=== PATIENT | female | born 1970 | race Hispanic/Latino ===

== ENCOUNTER 2025-06-07 14:05 | Emergency (ER) | payer SELFPAY ==
[~2025-06-07] VITALS: Ht 160 cm; Wt 56.7 kg
[2025-06-07 14:44] VITALS: TEMP 98.3
[2025-06-07] MEDS: CYCLOBENZAPRINE HCL 10 MG TAB PO ONE (15:43)
[2025-06-07] MEDS: KETOROLAC TROMETHAMINE 60 MG/2 ML VIAL IM ONE (15:45)
[2025-06-07 17:12] VITALS: PULSE 66; RESP 18; O2SAT 100
[2025-06-07] MEDS ORDERED: CYCLOBENZAPRINE10 MG PO (17:14)
== END 2025-06-07 17:42 | disposition home or self-care (01) ==
LOC: ER 14:51
DX: M54.50 Low back pain, unspecified (principal)
CPT/HCPCS: 72131; 99283; J1885